=== PATIENT | female | born 1980 | race Hispanic/Latino ===

== ENCOUNTER 2025-02-25 18:24 | Emergency (ER) | payer BC ==
[~2025-02-25] VITALS: Ht 157.5 cm; Wt 80.1 kg
[2025-02-25 20:04] VITALS: TEMP 98.7
[2025-02-25 21:00] VITALS: PULSE 52; RESP 13; O2SAT 99
[2025-02-25] MEDS ORDERED: FAMOTIDINE 20 MG/2 ML VIAL IV ONE (21:05)
[2025-02-25] MEDS: MAGNESIUM/ALUMINUM/SIMETHICONE 30 ML UDC PO ONE (21:22)
[2025-02-25] MEDS: FAMOTIDINE 20 MG/2 ML VIAL IV STA (21:22)
[2025-02-25] MEDS: ASPIRIN 325 MG TAB PO ONE (21:23)
[2025-02-25] MEDS: ACETAMINOPHEN 325 MG TAB PO ONE (21:23)
== END 2025-02-25 21:18 | disposition home or self-care (01) ==
LOC: FSED 18:39
DX: R07.89 Other chest pain (principal); R00.1 Bradycardia, unspecified; I10 Essential (primary) hypertension; K29.70 Gastritis, unspecified, without bleeding; E03.9 Hypothyroidism, unspecified
CPT/HCPCS: 70450; 71045; 80053; 80307; 81003; 81025; 84484; 85025; 93005; 99284; J1308